=== PATIENT | male | born 1965 | race Caucasian/White ===

== ENCOUNTER 2016-08-18 00:03 | Inpatient (IN) | payer OTHER ==
[2016-08-18] MEDS ORDERED: LORazepam 2 MG/ML INJ ONE (00:22)
[2016-08-18] MEDS ORDERED: LORazepam 2 MG/ML INJ IVP ONE ×3 (00:29→02:53)
[2016-08-18] MEDS ORDERED: NS 1,000 ML IV ONE (01:06)
--- NOTE | 2016-08-18 01:09 | EDPHY ---
H & P Stated Complaint: seizure likely d/t EtOH withdrawal Time Seen by Provider: 08/18/16 00:59 HPI/ROS: HPI The patient presents brought in from shelter after 2 seizures which occurred at 9: 30 p.m. and then 11:00 p.m. lasting for several minutes and resolving spontaneously. The patient is a heavy drinker, drinking about a half gal of hard alcohol daily recently. His last drink was at 2:00 p.m. yesterday. He has a prior history of alcohol withdrawal seizures years ago. Currently, he says he feels anxious, nauseated, jittery. He received a dose of Ativan prior to my assessment with feels that this did not help him much.. REVIEW OF SYSTEMS Constitutional: No fever, no chills. Eyes: No discharge. ENT: No sore throat. Cardiovascular: No chest pain, no palpitations. Respiratory: No cough, no shortness of breath. Gastrointestinal: No abdominal pain, no vomiting. Genitourinary: No hematuria. Musculoskeletal: No back pain. Skin: No rashes. Neurological: No headache. PMHx: History of alcohol withdrawal with seizures Soc Hx: Currently incarcerated PHYSICAL General Appearance: Anxious appearing in no acute distress Eyes: Pupils equal and round no pallor or injection ENT, Mouth: Mucous membranes moist Respiratory: There are no retractions, lungs are clear to auscultation Cardiovascular: Regular rate and rhythm Gastrointestinal: Abdomen is soft and non-tender, no masses, bowel sounds normal Neurological: A&O, moves all extremities Skin: Warm and dry, no rashes Musculoskeletal: Neck is supple non tender Extremities: symmetrical, full range of motion Psychiatric: Patient is oriented X 3, there is no agitation Source: Patient, Police - Personal History Current Tetanus/Diphtheria Vaccine: No - Medical/Surgical History Hx Asthma: No Hx Chronic Respiratory Disease: No Hx Diabetes: No Hx Cardiac Disease: No Hx Renal Disease: No Hx Cirrhosis: No Hx Alcoholism: Yes Hx HIV/AIDS: No Hx Splenectomy or Spleen Trauma: No Other PMH: PSHx: appy. PMHx: possible Hep C; alcoholism, heroin abuse - Social History Smoking Status: Current every day smoker Constitutional: Initial Vital Signs Temperature (C) 36.5 C 08/18/16 00:08 Heart Rate 91 08/18/16 00:08 Respiratory Rate 16 08/18/16 00:08 Blood Pressure 155/117 H 08/18/16 00:08 O2 Sat (%) 96 08/18/16 00:08 O2 Delivery Mode Nasal Cannula O2 (L/minute) 2 Allergies/Adverse Reactions: No Known Allergies Allergy (Unverified 08/18/16 00:06) Home Medications: Medication Instructions Recorded Atenolol 08/18/16 FOLIC ACID 08/18/16 Pepto-Bismol oral liquid (*) 08/18/16 Thiamine HCl 08/18/16 Tylenol 08/18/16 chlordiazePOXIDE [Librium 25 mg 08/18/16 (*)] clonIDINE [Catapres (*)] 08/18/16 Medical Decision Making ED Course/Re-evaluation: The patient was monitored in the emergency room and received a total of 3 mg of Ativan with small amount of improvement in his symptoms. Was very sleepy, however when he roused she became very tachycardic and tremulous. I feel he is at risk for delirium tremens. I plan to admit him to the hospitalist service. I have discussed the case with Dr. Gibbons. Differential Diagnosis: This is a 50-year-old male with history of heavy alcohol use, recently incarcerated, last drink about 12 hours ago who presents with alcohol withdrawal symptoms and 2 seizures earlier tonight. Currently, he is mildly tachycardic and hypertensive, he feels anxious and is tremulous. I will treat him with Ativan and IV fluids and check basic labs. We will monitor him closely on the monitor. - Data Points Laboratory Results: Laboratory Results 08/18/16 00:17 08/18/16 00:17 08/18/16 08/18/16 00: 00:17 WBC 10.99 10^3/uL H 10^3/uL (3.80-9.50) RBC 4.92 10^6/uL 10^6/uL (4.40-6.38) Hgb 14.8 g/dL g/dL (13.7-17.5) Hct 44.0 % % (40.0-51.0) MCV 89.4 fL fL (81.5-99.8) MCH 30.1 pg pg (27.9-34.1) MCHC 33.6 g/dL g/dL (32.4-36.7) RDW 15.0 % % (11.5-15.2) Plt Count 376 10^3/uL 10^3/uL (150-400) MPV 10.4 fL fL (8.7-11.7) Neut % (Auto) 65.2 % % (39.3-74.2) Lymph % (Auto) 24.0 % % (15.0-45.0) [place] % (Auto) 9.3 % % (4.5-13.0) Eos % (Auto) 0.7 % % (0.6-7.6) Baso % (Auto) 0.4 % % (0.3-1.7) Nucleat RBC Rel Count 0.0 % % (0.0-0.2) Absolute Neuts (auto) 7.17 10^3/uL H 10^3/uL (1.70-6.50) Absolute Lymphs (auto) 2.64 10^3/uL 10^3/uL (1.00-3.00) Absolute Monos (auto) 1.02 10^3/uL H 10^3/uL (0.30-0.80) Absolute Eos (auto) 0.08 10^3/uL 10^3/uL (0.03-0.40) Absolute Basos (auto) 0.04 10^3/uL 10^3/uL (0.02-0.10) Absolute Nucleated RBC 0.00 10^3/uL 10^3/uL (0-0.01) Immature Gran % 0.4 % % (0.0-1.1) Immature Gran # 0.04 10^3/uL 10^3/uL (0.00-0.10) Sodium 143 mEq/L mEq/L (134-144) Potassium 4.5 mEq/L mEq/L (3.5-5.2) Chloride 109 mEq/L mEq/L (97-110) Carbon Dioxide 19 mEq/l L mEq/l (22-31) Anion Gap 15 mEq/L mEq/L (8-16) BUN 15 mg/dL mg/dL (7-23) Creatinine 0.9 mg/dL mg/dL (0.7-1.3) Estimated GFR > 60 Glucose 94 mg/dL mg/dL (70-100) Calcium 9.4 mg/dL mg/dL (8.5-10.4) Total Bilirubin 0.8 mg/dL mg/dL (0.1-1.4) AST 31 IU/L IU/L (17-59) ALT 31 IU/L IU/L (21-72) Alkaline Phosphatase 58 IU/L IU/L (38-126) Total Protein 7.5 g/dL g/dL (6.3-8.2) Albumin 4.3 g/dL g/dL (3.5-5.0) Medications Given: Discontinued Medications Sodium Chloride (Ns) 1,000 mls @ 0 mls/hr IV ONCE ONE PRN Reason: Wide Open Stop: 08/18/16 01:07 Last Admin: 08/18/16 01:18 Dose: 1,000 mls Thiamine HCl 500 mg/ Sodium (Chloride) 105 mls @ 210 mls/hr IM ONCE ONE Stop: 08/18/16 05:07 Last Admin: 08/18/16 05:26 Dose: 105 mls Lorazepam (Ativan Injection) 1 mg IVP EDNOW ONE Stop: 08/18/16 00:30 Last Admin: 08/18/16 00:30 Dose: 1 mg Lorazepam (Ativan Injection) 1 mg IVP EDNOW ONE Stop: 08/18/16 01:07 Last Admin: 08/18/16 01:17 Dose: 1 mg Lorazepam (Ativan Injection) 1 mg IVP EDNOW ONE Stop: 08/18/16 02:54 Last Admin: 08/18/16 03:06 Dose: 1 mg Departure - Departure Disposition: [facility] Acute Clinical Impression: Alcohol withdrawal Qualifiers: Complication of substance-induced condition: with delirium Qualified Code(s): F10.231 - Alcohol dependence with withdrawal delirium Seizure due to alcohol withdrawal Qualifiers: Complication of substance-induced condition: with delirium Qualified Code(s): F10.231 - Alcohol dependence with withdrawal delirium Condition: Fair
[2016-08-18 01:16] LABS: % IMMATURE GRANULYOCYTES 0.4 % (0.0-1.1); ABSOLUTE IMMATURE GRANULOCYTES 0.04 10^3/uL (0.00-0.10); ADD DIFF? NO; ADD MORPH? NO; ADD SCAN? NO; ATYPICAL LYMPHOCYTE FLAG 0 (0-99); FRAGMENT RBC FLAG 0 (0-99); HEMOGLOBIN 14.8 g/dL (13.7-17.5); LEFT SHIFT FLG 0 (0-99); LIPEMIA HEMOLYSIS FLAG 80 (0-99); MEAN CELL HEMOGLOBIN 30.1 pg (27.9-34.1); MEAN CELL HEMOGLOBIN CONCENTR. 33.6 g/dL (32.4-36.7); MEAN CELL VOLUME 89.4 fL (81.5-99.8); MEAN PLATELET VOLUME 10.4 fL (8.7-11.7); PLATELET CLUMPS FLAG 20 (0-99); PLATELET COUNT 376 10^3/uL (150-400); RED BLOOD CELL COUNT 4.92 10^6/uL (4.40-6.38)
[2016-08-18 01:20] LABS: ALANINE AMINOTRANSFERASE 31 IU/L (21-72); ALBUMIN 4.3 g/dL (3.5-5.0); ALKALINE PHOSPHATASE 58 IU/L (38-126); ANION GAP 15 mEq/L (8-16); ASPARTATE AMINOTRANSFERASE 31 IU/L (17-59); BILIRUBIN,TOTAL 0.8 mg/dL (0.1-1.4); CALCIUM 9.4 mg/dL (8.5-10.4); CARBON DIOXIDE 19 mEq/l (22-31); CHLORIDE 109 mEq/L (97-110); CREATININE 0.9 mg/dL (0.7-1.3); GLOMERULAR FILTRATION RATE > 60; GLUCOSE 94 mg/dL (70-100); POTASSIUM 4.5 mEq/L (3.5-5.2); SODIUM 143 mEq/L (134-144); TOTAL PROTEIN 7.5 g/dL (6.3-8.2)
[2016-08-18] MEDS ORDERED: THIAMINE HCL 500 MG in NS 100 ML IM ONE (04:38)
[2016-08-18] MEDS ORDERED: MAG HYDROX/AL HYDROX/SIMETH 30 ML UDCUP PO PRN (04:38)
[2016-08-18] MEDS ORDERED: NS 1,000 ML IV SCH (04:45)
[2016-08-18 05:37] LABS: % IMMATURE GRANULYOCYTES 0.3 % (0.0-1.1); ABSOLUTE IMMATURE GRANULOCYTES 0.03 10^3/uL (0.00-0.10); ADD DIFF? NO; ADD MORPH? NO; ADD SCAN? NO; ATYPICAL LYMPHOCYTE FLAG 10 (0-99); FRAGMENT RBC FLAG 0 (0-99); HEMOGLOBIN 13.6 g/dL (13.7-17.5); LEFT SHIFT FLG 0 (0-99); LIPEMIA HEMOLYSIS FLAG 90 (0-99); MEAN CELL HEMOGLOBIN 30.4 pg (27.9-34.1); MEAN CELL VOLUME 89.5 fL (81.5-99.8); MEAN PLATELET VOLUME 10.2 fL (8.7-11.7); PLATELET CLUMPS FLAG 20 (0-99); PLATELET COUNT 374 10^3/uL (150-400); RED BLOOD CELL COUNT 4.47 10^6/uL (4.40-6.38); RED CELL DISTRIBUTION WIDTH 14.9 % (11.5-15.2)
[2016-08-18] MEDS ORDERED: ONDANSETRON 4 MG/2 ML VIAL IVP PRN (05:43)
[2016-08-18] MEDS ORDERED: ONDANSETRON 4 MG/2 ML VIAL ONE (05:45)
[2016-08-18] MEDS: ACETAMINOPHEN 325 MG TAB PO PRN ×2 (05:49→11:38)
[2016-08-18] MEDS: LORazepam 2 MG/ML INJ IVP PRN ×4 (05:49→14:17)
--- NOTE | 2016-08-18 05:49 | PDGENHP ---
History and Physical - Chief Complaint seizure - History of Present Illness Patient a 50-year-old male with history of heavy ETOH abuse who presents from prison with seizures. Patient states he usually drinks about a half a gallon of whiskey or vodka daily and last drink was on the morning of 08/17. At about 4: 45 p.m. patient was arrested and placed in [facility] prison. While incarcerated patient was noted to have a generalized tonic-clonic seizure at 9: 00 p.m. and then again at 11:30 p.m. with a distinct lucid period. After the second seizure, he was transported to the ED for further evaluation and was given ativan 1 mg en route. By arrival to the ED, patient was afebrile and hemodynamically stable. He was exhibiting mild-moderate symptoms of acute alcohol withdrawal. Labs including CBC and BMP were normal. He was given several rounds of ativan and then admitted to the hospitalist service for further management. On my evaluation, patient could not provide much additional medical history due to sedation/lethargy. He was complaining of headache and feeling anxious. Denied fever, chills, cough, congestion, abdominal pain, vomiting or diarrhea. History Information - Allergies/Home Medication List Allergies/Adverse Reactions: No Known Allergies Allergy (Unverified 08/18/16 00:06) Home Medications: Atenolol 08/18/16 [Last Taken Unknown] FOLIC ACID 08/18/16 [Last Taken Unknown] Pepto-Bismol oral liquid (*) 08/18/16 [Last Taken Unknown] Thiamine HCl 08/18/16 [Last Taken Unknown] Tylenol 08/18/16 [Last Taken Unknown] chlordiazePOXIDE [Librium 25 mg (*)] 08/18/16 [Last Taken Unknown] clonIDINE [Catapres (*)] 08/18/16 [Last Taken Unknown] I have personally reviewed and updated: family history, medical history, social history, surgical history - Past Medical History Additional medical history: heavy ETOH abuse, with previous history of withdrawal seizures. unknown - Surgical History Reports: appendectomy - Family History Positive for: non-pertinent - Social History Smoking Status: Current every day smoker Alcohol Use: Heavy (4 pints of liquor daily) Drug Use: Other (unknown) Additional social history: Patient is homeless, was incarcerated today. Review of Systems ROS: 10pt was reviewed & negative except for what was stated in HPI & below Physical Exam Temp Pulse Resp BP Pulse Ox 36.5 C 90 24 H 159/101 H 93 08/18/16 04:58 08/18/16 04:58 08/18/16 04:58 08/18/16 04:10 08/18/16 04:58 O2 (L/minute) 2 Constitutional: no apparent distress, obese, unkempt Eyes: PERRL, anicteric sclera, EOMI Ears, Nose, Mouth, Throat: hearing normal, ears appear normal, no oral mucosal ulcers, dry mucous membranes, other (tongue fasiculation) Cardiovascular: regular rate and rhythym, no murmur, rub, or gallop, pulses symmetric bilaterally, tachycardia, No JVD, No edema Peripheral Pulses: 2+: dorsalis-pedis (R), dorsalis-pedis (L) Respiratory: no respiratory distress, no rales or rhonchi, clear to auscultation Gastrointestinal: normoactive bowel sounds, soft, non-tender abdomen, no palpable masses, No guarding, No rebound, No distension Genitourinary: no bladder fullness, no bladder tenderness Skin: warm, normal color, no rashes or abrasions, no fluctuance, No mottled Musculoskeletal: no muscle tenderness, normal joint ROM Neurologic: AAOx3, sensation intact bilaterally, CN II-XII Intact, other ( moving all four extremities), No weakness, No numbness, No pronator drift, No facial droop Psychiatric: thought process linear, other (lethargic but responsive to verbal stimuli) Lab Data & Imaging Review 08/18/16 06:00 08/18/16 06:00 WBC 8.88 10^3/uL (3.80-9.50) 08/18/16 06:00 RBC 4.47 10^6/uL (4.40-6.38) 08/18/16 06:00 Hgb 13.6 g/dL (13.7-17.5) L 08/18/16 06:00 Hct 40.0 % (40.0-51.0) 08/18/16 06:00 MCV 89.5 fL (81.5-99.8) 08/18/16 06:00 MCH 30.4 pg (27.9-34.1) 08/18/16 06:00 MCHC 34.0 g/dL (32.4-36.7) 08/18/16 06:00 RDW 14.9 % (11.5-15.2) 08/18/16 06:00 Plt Count 374 10^3/uL (150-400) 08/18/16 06:00 MPV 10.2 fL (8.7-11.7) 08/18/16 06:00 Neut % (Auto) 51.1 % (39.3-74.2) 08/18/16 06:00 Lymph % (Auto) 36.0 % (15.0-45.0) 08/18/16 06:00 [place] % (Auto) 10.4 % (4.5-13.0) 08/18/16 06:00 Eos % (Auto) 1.7 % (0.6-7.6) 08/18/16 06:00 Baso % (Auto) 0.5 % (0.3-1.7) 08/18/16 06:00 Nucleat RBC Rel Count 0.0 % (0.0-0.2) 08/18/16 06:00 Absolute Neuts (auto) 4.54 10^3/uL (1.70-6.50) 08/18/16 06:00 Absolute Lymphs (auto) 3.20 10^3/uL (1.00-3.00) H 08/18/16 06:00 Absolute Monos (auto) 0.92 10^3/uL (0.30-0.80) H 08/18/16 06:00 Absolute Eos (auto) 0.15 10^3/uL (0.03-0.40) 08/18/16 06:00 Absolute Basos (auto) 0.04 10^3/uL (0.02-0.10) 08/18/16 06:00 Absolute Nucleated RBC 0.00 10^3/uL (0-0.01) 08/18/16 06:00 Immature Gran % 0.3 % (0.0-1.1) 08/18/16 06:00 Immature Gran # 0.03 10^3/uL (0.00-0.10) 08/18/16 06:00 VBG Lactic Acid 1.6 mmol/L (0.7-2.1) 08/18/16 04:00 Sodium 143 mEq/L (134-144) 08/18/16 00:17 Potassium 4.5 mEq/L (3.5-5.2) 08/18/16 00:17 Chloride 109 mEq/L (97-110) 08/18/16 00:17 Carbon Dioxide 19 mEq/l (22-31) L 08/18/16 00:17 Anion Gap 15 mEq/L (8-16) 08/18/16 00:17 BUN 15 mg/dL (7-23) 08/18/16 00:17 Creatinine 0.9 mg/dL (0.7-1.3) 08/18/16 00:17 Estimated GFR > 60 08/18/16 00:17 Glucose 94 mg/dL (70-100) 08/18/16 00:17 Calcium 9.4 mg/dL (8.5-10.4) 08/18/16 00:17 Total Bilirubin 0.8 mg/dL (0.1-1.4) 08/18/16 00:17 AST 31 IU/L (17-59) 08/18/16 00:17 ALT 31 IU/L (21-72) 08/18/16 00:17 Alkaline Phosphatase 58 IU/L (38-126) 08/18/16 00:17 Total Protein 7.5 g/dL (6.3-8.2) 08/18/16 00:17 Albumin 4.3 g/dL (3.5-5.0) 08/18/16 00:17 Assessment & Plan Assessment: Is a 50-year-old male with a history of heavy alcohol use, with previous history of alcohol withdrawal seizure was brought to the ED from retirement after having 2 witnessed generalized tonic-clonic seizures, presumed to be due to acute alcohol withdrawal.. Plan: # seizure, acute encephalopathy Seizures presumed to be due to acute alcohol withdrawal given history of heavy ETOH use and recent incarceration preventing his access to ETOH.On my evaluation , withdrawal symptoms were minimal, but patient continued to complain of headache, so will check CT head to rule out intracranial cause of seizure. Will also check CXR, UA and drug screen to rule out secondary causes of acute encephalopathy. Will treat ETOH withdrawal and not treat with anti-epileptics at this time. # acute alcohol withdrawal Last drink was on the morning of 07/20 and patient reports history of withdrawal seizures. Will place on aggressive CIWA protocol with ativan. Will also supplement thiamine, folate, multivitamin. # history of tobacco use Will offer nicotine replacement therapy prn. # dispo: admit to inpatient service for likely > 2 [place] stay given acute alcohol withdrawal complicated by seizures # gen: NPO DVT ppx: lovenox Full code
[2016-08-18 06:16] LABS: ALANINE AMINOTRANSFERASE 28 IU/L (21-72); ALBUMIN 3.9 g/dL (3.5-5.0); ALKALINE PHOSPHATASE 51 IU/L (38-126); ANION GAP 10 mEq/L (8-16); ASPARTATE AMINOTRANSFERASE 28 IU/L (17-59); BILIRUBIN-CONJUGATED 0.5 mg/dL (0.0-0.5); BILIRUBIN-UNCONJUGATED 0.5 mg/dL (0.0-1.1); CALCIUM 8.9 mg/dL (8.5-10.4); CARBON DIOXIDE 23 mEq/l (22-31); CHLORIDE 110 mEq/L (97-110); CREATININE 0.9 mg/dL (0.7-1.3); GLOMERULAR FILTRATION RATE > 60; GLUCOSE 84 mg/dL (70-100); MAGNESIUM 1.9 mg/dL (1.6-2.3); POTASSIUM 4.1 mEq/L (3.5-5.2); SODIUM 143 mEq/L (134-144); TOTAL PROTEIN 6.8 g/dL (6.3-8.2)
--- NOTE | 2016-08-18 08:35 | CPEKG ---
Heart Rate: 90 RR Interval: 667 P-R Interval: 132 QRSD Interval: 94 QT Interval: 380 QTC Interval: 465 P [place]: 60 QRS [place]: 5 T Wave [place]: 37 EKG Severity - NORMAL ECG - EKG Impression: SINUS RHYTHM EKG Impression: Agree with above Electronically Signed By: Jay Jay Cool 18-Aug-2016 18:20:09
[2016-08-18] MEDS ORDERED: FAMOTIDINE 20 MG/NACL 50 ML IV SCH (09:00)
[2016-08-18] MEDS ORDERED: FOLIC ACID 1 MG TAB PO SCH (09:00)
[2016-08-18] MEDS ORDERED: MULTIVITAMINS 1 EACH TAB PO SCH (09:00)
[2016-08-18] MEDS ORDERED: ENOXAPARIN 40 MG/0.4 ML SYR SC SCH (09:00)
[2016-08-18] MEDS ORDERED: THIAMINE HCL 100 MG TAB PO SCH (10:55)
[2016-08-18] MEDS ORDERED: IPRATROPIUM/ALBUTEROL 3 ML DEYVIAL IH SCH (12:00)
[2016-08-18 12:09] LABS: COLOR YELLOW; LEUKOCYTE ESTERASE,URINE NEGATIVE (NEGATIVE); NITRITE,URINE NEGATIVE (NEGATIVE)
[2016-08-18 12:24] VITALS: BP 150/99; PULSE 87; RESP 24; TEMP 98.6; O2SAT 92
[2016-08-18 12:35] LABS: PHENCYCLIDINE URINE BCH < 6 ng/ml (NEGATIVE); PHENCYCLIDINE URINE BCH NEGATIVE (NEGATIVE); TETRAHYDROCANNABINOL URINE > 80 ng/mL (NEGATIVE)
[2016-08-18 12:49] LABS: TETRAHYDROCANNABINOL URINE 750 ng/mL (NEGATIVE)
--- NOTE | 2016-08-18 16:34 | GCON ---
[f rep st] CONSULTATION PULMONARY/CRITICAL CARE CONSULTATION DATE OF CONSULTATION: 08/18/2016 REFERRING PHYSICIAN: Prosper Montoya MD REASON FOR REFERRAL: Evaluation and management of headache, seizure and alcohol withdrawal. HISTORY: The patient is a 50-year-old gentleman with a history of heavy alcohol abuse. His last dr ink was yesterday morning. The patient was arrested at 4:45 and placed in the [facility] halfway. He had a witnessed generalized tonic-clonic seizure at 9 p.m. and then again at 11:30 p.m. He was transported to the [facility] Emergency Department where he was evaluated and admitt ed. Since admission, he has had intermittent symptoms of alcohol withdrawal including headache and anxiety. These have responded to IV Ativan. He currently reports a headache that is quite diffuse and made worse by brighter light. PAST MEDICAL HISTORY: Alcohol abuse with a history of withdrawal seizures. MEDICATIONS: As an outpatient include thiamine, Librium, clonidine, folic acid and atenolol, althou gh it is not clear that the patient has been taking these medications. FAMILY HISTORY: Unremarkable. SOCIAL HISTORY: The patient drinks several pints of hard liquor daily and smokes daily. He is home less, and is currently incarcerated. REVIEW OF SYSTEMS: A 10-point review of systems is reviewed and is negative. PHYSICAL EXAMINATION: GENERAL: The patient is lethargic but arousable. VITAL SIGNS: His blood pr essure is 150/99 with a heart rate of 87. He is afebrile. Oxygen saturations are 92% on 2 L. HEEN T: Normocephalic and atraumatic. No icterus. NECK: No JVD. Trachea is midline. CHEST: Clear t o auscultation. CARDIAC: Regular rate and rhythm without murmur. ABDOMEN: Soft, nontender. Moy l sounds are present. EXTREMITIES: No clubbing, cyanosis or edema. NEURO: The patient is sleepin g but arousable and oriented x1. He is able to move all extremities. LABORATORY: The chemistry group is normal. CBC shows a hemoglobin of 13.6. A urine tox screen is positive for marijuana and benzodiazepines. A chest x-ray shows some mild atelectasis in the right base. Images reviewed. A CT scan of the head shows no acute findings. ASSESSMENT: 1. Seizures. These are likely related to alcohol withdrawal. He has had no seizures since admissi on and being placed on Ativan. 2. Acute alcohol withdrawal. The patient's symptoms are currently fairly well controlled with Ativ an on a p.r.n. basis, which he has been receiving regularly. 3. History of tobacco abuse. PLAN: 1. Continue Ativan. I will schedule Ativan 1 mg every 4 hours in addition to the p.r.n. dosing. 2. Continue thiamine replacement. 3. Continue the CIWA protocol. Alcohol will not be used as it is anticipated the patient will be g oing back to halfway after his hospitalization, so will need either scheduled benzodiazepine or no medi cations at the time of discharge. /[id number]/MODL
[2016-08-18] MEDS ORDERED: LORazepam 2 MG/ML INJ IVP SCH (18:00)
[2016-08-21] MEDS ORDERED: THIAMINE HCL 100 MG TAB PO SCH (09:00)
== END 2016-08-18 17:02 | disposition left against medical advice (07) | DRG 101 ==
LOC: F2N 04:36 → OBSVTOIN 04:37
PROVIDERS: ADMIT Internal Medicine; ATTEND Internal Medicine
DX: R56.9 Unspecified convulsions (principal); F10.239 Alcohol dependence with withdrawal, unspecified; R51 Headache; Z59.0 Homelessness
CPT/HCPCS: 80307; 96374; G0480; J1650; J2060; J2405; J3411

== ENCOUNTER 2017-08-08 23:46 | Observation (INO) | payer OTHER ==
[2017-08-08] MEDS ORDERED: NS 1,000 ML IV ONE (23:51)
--- NOTE | 2017-08-08 23:53 | EDPHY ---
H & P Time Seen by Provider: 08/08/17 23:55 HPI/ROS: HPI CHIEF COMPLAINT: Seizure from skilled nursing HISTORY OF PRESENT ILLNESS: Patient is a 51-year-old male, he is currently incarcerated. He was resting 5 days ago. He drinks alcohol daily and has up to half a gal of whiskey per day. He stopped drinking 5 days ago as he was arrested. Additionally he also does IV heroin and stop this 5 days ago prior to being arrested. He presents emergency room by EMS with a normal glucose of 83 and mentating appropriately but had a witnessed seizure in skilled nursing lasting 20 min. There was a much of a postictal state reported however patient presents to the emergency room alert or x4, GCS 15, no trauma on exam. Does state that he has a global headache. Vital signs are stable. He received 2 mg IV Valium prior to arrival. Past Medical History: Alcohol draw seizures, alcoholism, heroin abuse Past Surgical History: No recent surgery Social History: Currently incarcerated, history polysubstance abuse, IV heroin , alcoholism. Daily alcohol use. Family History: Noncontributory ROS REVIEW OF SYSTEMS: A comprehensive 10 point review of systems is otherwise negative aside from elements mentioned in the history of present illness. Exam Constitutional appears well nontoxic triage nursing summary reviewed, vital signs reviewed, awake/alert. Eyes normal conjunctivae and sclera, EOMI, PERRLA. HENT oropharynx no biting of the tongue, normal inspection, atraumatic, moist mucus membranes, no epistaxis, neck supple/ no meningismus, no raccoon eyes. Respiratory clear to auscultation bilaterally, normal breath sounds, no respiratory distress, no wheezing. Cardiovascular rate normal, regular rhythm, no murmur, no edema, distal pulses normal. Gastrointestinal soft, non-tender, no rebound, no guarding, normal bowel sounds, no distension, no pulsatile mass. Genitourinary no CVA tenderness. Musculoskeletal no midline vertebral tenderness, full range of motion, no calf swelling, no tenderness of extremities, no meningismus, good pulses, neurovascularly intact. Skin pink, warm, & dry, no rash, skin atraumatic. Neurologic awake, alert and oriented x 3, AAOx3, moves all 4 extremities equally, motor intact, sensory intact, CN II-XII intact, normal cerebellar, normal vision, normal speech. Psychiatric normal mood/affect. Heme/Lymph/Immune no lymphadenopathy. Differential Diagnosis: Includes but is not limited to in a particular order alcohol withdrawal seizure, electrolyte abnormality, acidosis, pseudo seizure, heroin withdrawal, Medical Decision Making: Plan for this patient IV establishment full ekg monitor tech obtain EKG, electrolytes, CT head without contrast, IV fluids, check bicarb level, check lactic acid. Re-evaluate. Monitor for seizure. Re-evaluation: EKG interpretation by me on record in [employer] system. Impression time of EKG 2055, sinus rhythm rate of 65 no signs of cardiac arrhythmia no signs of ST elevation or ST depression. No significant T-wave abnormalities. 1249: CT head without contrast negative for acute bleed or traumatic injury. 1251: Patient's blood work reviewed. I have ordered him 1 g of Keppra. This bicarb is noted to be normal. Lactic acid noted be normal view vitals are stable. He has not any seizure activity here. Will admit him overnight for observation given the description of 20 min of seizure activity in skilled nursing. He did receive 2 mg IV Valium prior to arrival. IV fluids. Now 1 g of Keppra. 1258AM: Patient resting comfortably. Spoke with the hospitalist service Dr. Saeed who agrees to admit. Source: Patient, EMS - Medical/Surgical History Hx Asthma: No Hx Chronic Respiratory Disease: No Hx Diabetes: No Hx Cardiac Disease: No Hx Renal Disease: No Hx Cirrhosis: No Hx Alcoholism: Yes Hx HIV/AIDS: No Hx Splenectomy or Spleen Trauma: No Other PMH: PSHx: appy. PMHx: possible Hep C; alcoholism, heroin abuse - Social History Smoking Status: Current every day smoker Constitutional: Initial Vital Signs Temperature (C) 36.5 C 08/08/17 23:55 Heart Rate 62 08/08/17 23:55 Respiratory Rate 20 08/08/17 23:55 Blood Pressure 136/92 H 08/08/17 23:55 O2 Sat (%) 98 08/08/17 23:55 O2 Delivery Mode Room Air Allergies/Adverse Reactions: No Known Allergies Allergy (Unverified 08/08/17 23:55) Home Medications: Medication Instructions Recorded chlordiazePOXIDE [Librium 25 mg 25 mg PO TID #13 cap 08/18/16 (*)] clonIDINE [Catapres (*)] 0.1 mg PO Q8 PRN 08/18/16 Medical Decision Making - Data Points Laboratory Results: Laboratory Results 08/08/17 23:45 08/08/17 23:45 08/09/17 08/08/17 08/08/17 00:11 23:45 23:45 WBC RBC Hgb Hct MCV MCH MCHC RDW Plt Count MPV Neut % (Auto) Lymph % (Auto) [place] % (Auto) Eos % (Auto) Baso % (Auto) Nucleat RBC Rel Count Absolute Neuts (auto) Absolute Lymphs (auto) Absolute Monos (auto) Absolute Eos (auto) Absolute Basos (auto) Absolute Nucleated RBC Immature Gran % Immature Gran # PT 13.1 SEC SEC (12.0-15.0) INR 0.97 (0.83-1.16) APTT 28.0 SEC SEC (23.0-38.0) VBG Lactic Acid 0.9 mmol/L mmol/L (0.7-2.1) Sodium 143 mEq/L mEq/L (135-145) Potassium 4.4 mEq/L mEq/L (3.5-5.2) Chloride 104 mEq/L mEq/L (97-110) Carbon Dioxide 28 mEq/l mEq/l (22-31) Anion Gap 11 mEq/L mEq/L (8-16) BUN 18 mg/dL mg/dL (7-23) Creatinine 0.8 mg/dL mg/dL (0.7-1.3) Estimated GFR > 60 Glucose 70 mg/dL mg/dL (70-100) Calcium 9.6 mg/dL mg/dL (8.5-10.4) Total Bilirubin 0.5 mg/dL mg/dL (0.1-1.4) Conjugated Bilirubin 0.3 mg/dL mg/dL (0.0-0.5) Unconjugated Bilirubin 0.2 mg/dL mg/dL (0.0-1.1) AST 71 IU/L H IU/L (17-59) ALT 133 IU/L H IU/L (21-72) Alkaline Phosphatase 46 IU/L IU/L (38-126) Total Protein 7.2 g/dL g/dL (6.3-8.2) Albumin 3.6 g/dL g/dL (3.5-5.0) Lipase 130 IU/L IU/L (23-300) Ethyl Alcohol < 10 mg/dL mg/dL (0-10) 08/08/17 23:45 WBC 7.72 10^3/uL 10^3/uL (3.80-9.50) RBC 4.71 10^6/uL 10^6/uL (4.40-6.38) Hgb 13.6 g/dL L g/dL (13.7-17.5) Hct 40.7 % % (40.0-51.0) MCV 86.4 fL fL (81.5-99.8) MCH 28.9 pg pg (27.9-34.1) MCHC 33.4 g/dL g/dL (32.4-36.7) RDW 14.8 % % (11.5-15.2) Plt Count 348 10^3/uL 10^3/uL (150-400) MPV 9.8 fL fL (8.7-11.7) Neut % (Auto) 42.6 % % (39.3-74.2) Lymph % (Auto) 38.1 % % (15.0-45.0) [place] % (Auto) 12.8 % % (4.5-13.0) Eos % (Auto) 5.4 % % (0.6-7.6) Baso % (Auto) 0.8 % % (0.3-1.7) Nucleat RBC Rel Count 0.0 % % (0.0-0.2) Absolute Neuts (auto) 3.29 10^3/uL 10^3/uL (1.70-6.50) Absolute Lymphs (auto) 2.94 10^3/uL 10^3/uL (1.00-3.00) Absolute Monos (auto) 0.99 10^3/uL H 10^3/uL (0.30-0.80) Absolute Eos (auto) 0.42 10^3/uL H 10^3/uL (0.03-0.40) Absolute Basos (auto) 0.06 10^3/uL 10^3/uL (0.02-0.10) Absolute Nucleated RBC 0.00 10^3/uL 10^3/uL (0-0.01) Immature Gran % 0.3 % % (0.0-1.1) Immature Gran # 0.02 10^3/uL 10^3/uL (0.00-0.10) PT INR APTT VBG Lactic Acid Sodium Potassium Chloride Carbon Dioxide Anion Gap BUN Creatinine Estimated GFR Glucose Calcium Total Bilirubin Conjugated Bilirubin Unconjugated Bilirubin AST ALT Alkaline Phosphatase Total Protein Albumin Lipase Ethyl Alcohol Medications Given: Discontinued Medications Sodium Chloride (Ns) 1,000 mls @ 0 mls/hr IV EDNOW ONE; Wide Open PRN Reason: Protocol Stop: 08/08/17 23:52 Last Admin: 08/09/17 00:00 Dose: 1,000 mls Levetiracetam (Keppra (Premix)) 100 mls @ 400 mls/hr IV EDNOW ONE Stop: 08/09/17 00:33 Last Admin: 08/09/17 00:53 Dose: 100 mls Departure - Departure Disposition: [facility] Inpatient Acute Clinical Impression: Seizure Condition: Fair Referrals: NONE *PRIMARY CARE P,. [Primary Care Provider] - As per Instructions
[2017-08-08 23:56] LABS: PLATELET COUNT 348 10^3/uL (150-400)
--- NOTE | 2017-08-08 23:57 | CPEKG ---
Heart Rate: 65 RR Interval: 923 P-R Interval: 137 QRSD Interval: 92 QT Interval: 428 QTC Interval: 445 P Callaway: 62 QRS Callaway: 33 T Wave Callaway: 22 EKG Severity - NORMAL ECG - EKG Impression: SINUS RHYTHM Electronically Signed By: Brian Mendoza 09-Aug-2017 07:22:14
[2017-08-09] MEDS ORDERED: levETIRAcetam 1000MG/NACL 100 ML IV ONE (00:19)
[2017-08-09 00:20] LABS: INR 0.97 (0.83-1.16); PROTIME(PATIENT) 13.1 SEC (12.0-15.0)
[2017-08-09] MEDS ORDERED: ONDANSETRON DISINTEGRATING 4 MG TAB PO PRN (00:57)
[2017-08-09] MEDS ORDERED: ONDANSETRON 4 MG/2 ML VIAL IVP PRN (00:57)
[2017-08-09] MEDS ORDERED: ACETAMINOPHEN 325 MG TAB PO PRN (00:57)
--- NOTE | 2017-08-09 02:03 | PDGENHP ---
History and Physical - Chief Complaint Seizure - History of Present Illness 51 yo M w/ hx of ETOH and IV heroin abuse presents after a seizure. EMS reports that patient had a 20 minute, witnessed, GTC seizure in group home today. He was brought to the ED by EMS. The patient has no memory of this, he only remembers going to bed and then waking up with EMS around him. He drinks >1 pint whiskey daily and his last drink was 5 days ago. He thinks he is over the worst of his withdrawal now with only minimal symptoms. His last heroin use was also 5 days ago. He is currently asymptomatic and fully oriented with no signs of post- ictal state. History Information - Allergies/Home Medication List Allergies/Adverse Reactions: No Known Allergies Allergy (Unverified 08/08/17 23:55) Home Medications: clonIDINE [Catapres (*)] 0.1 mg PO Q8 PRN 08/18/16 [Last Taken 08/17/16 19:30] I have personally reviewed and updated: family history, medical history - Past Medical History Additional medical history: heavy ETOH abuse, with previous history of withdrawal seizures. unknown - Surgical History Reports: appendectomy - Family History Positive for: CAD Additional family history: Estranged from his family for >20 years so knows little history - Social History Smoking Status: Current every day smoker Additional social history: Patient is homeless, was incarcerated today. Review of Systems Review of Systems: ROS: 10pt was reviewed & negative except for what was stated in HPI & below Physical Exam Physical Exam: Temp Pulse Resp BP Pulse Ox 36.9 C 70 16 140/92 H 94 08/09/17 00:52 08/09/17 00:52 08/09/17 00:52 08/09/17 00:52 08/09/17 00:52 Constitutional: no apparent distress, not in pain Eyes: PERRL, EOMI Ears, Nose, Mouth, Throat: moist mucous membranes, no oral mucosal ulcers Cardiovascular: regular rate and rhythym, no murmur, rub, or gallop Respiratory: no respiratory distress, clear to auscultation Gastrointestinal: normoactive bowel sounds, soft, non-tender abdomen Skin: warm, normal color Neurologic: AAOx3, CN II-XII Intact Psychiatric: interacting appropriately, not anxious Lab Data & Imaging Review 08/08/17 23:45 08/08/17 23:45 WBC 7.72 10^3/uL (3.80-9.50) 08/08/17 23:45 RBC 4.71 10^6/uL (4.40-6.38) 08/08/17 23:45 Hgb 13.6 g/dL (13.7-17.5) L 08/08/17 23:45 Hct 40.7 % (40.0-51.0) 08/08/17 23:45 MCV 86.4 fL (81.5-99.8) 08/08/17 23:45 MCH 28.9 pg (27.9-34.1) 08/08/17 23:45 MCHC 33.4 g/dL (32.4-36.7) 08/08/17 23:45 RDW 14.8 % (11.5-15.2) 08/08/17 23:45 Plt Count 348 10^3/uL (150-400) 08/08/17 23:45 MPV 9.8 fL (8.7-11.7) 08/08/17 23:45 Neut % (Auto) 42.6 % (39.3-74.2) 08/08/17 23:45 Lymph % (Auto) 38.1 % (15.0-45.0) 08/08/17 23:45 [place] % (Auto) 12.8 % (4.5-13.0) 08/08/17 23:45 Eos % (Auto) 5.4 % (0.6-7.6) 08/08/17 23:45 Baso % (Auto) 0.8 % (0.3-1.7) 08/08/17 23:45 Nucleat RBC Rel Count 0.0 % (0.0-0.2) 08/08/17 23:45 Absolute Neuts (auto) 3.29 10^3/uL (1.70-6.50) 08/08/17 23:45 Absolute Lymphs (auto) 2.94 10^3/uL (1.00-3.00) 08/08/17 23:45 Absolute Monos (auto) 0.99 10^3/uL (0.30-0.80) H 08/08/17 23:45 Absolute Eos (auto) 0.42 10^3/uL (0.03-0.40) H 08/08/17 23:45 Absolute Basos (auto) 0.06 10^3/uL (0.02-0.10) 08/08/17 23:45 Absolute Nucleated RBC 0.00 10^3/uL (0-0.01) 08/08/17 23:45 Immature Gran % 0.3 % (0.0-1.1) 08/08/17 23:45 Immature Gran # 0.02 10^3/uL (0.00-0.10) 08/08/17 23:45 PT 13.1 SEC (12.0-15.0) 08/08/17 23:45 INR 0.97 (0.83-1.16) 08/08/17 23:45 APTT 28.0 SEC (23.0-38.0) 08/08/17 23:45 VBG Lactic Acid 0.9 mmol/L (0.7-2.1) 08/09/17 00:11 Sodium 143 mEq/L (135-145) 08/08/17 23:45 Potassium 4.4 mEq/L (3.5-5.2) 08/08/17 23:45 Chloride 104 mEq/L (97-110) 08/08/17 23:45 Carbon Dioxide 28 mEq/l (22-31) 08/08/17 23:45 Anion Gap 11 mEq/L (8-16) 08/08/17 23:45 BUN 18 mg/dL (7-23) 08/08/17 23:45 Creatinine 0.8 mg/dL (0.7-1.3) 08/08/17 23:45 Estimated GFR > 60 08/08/17 23:45 Glucose 70 mg/dL (70-100) 08/08/17 23:45 Calcium 9.6 mg/dL (8.5-10.4) 08/08/17 23:45 Total Bilirubin 0.5 mg/dL (0.1-1.4) 08/08/17 23:45 Conjugated Bilirubin 0.3 mg/dL (0.0-0.5) 08/08/17 23:45 Unconjugated Bilirubin 0.2 mg/dL (0.0-1.1) 08/08/17 23:45 AST 71 IU/L (17-59) H 08/08/17 23:45 ALT 133 IU/L (21-72) H 08/08/17 23:45 Alkaline Phosphatase 46 IU/L (38-126) 08/08/17 23:45 Total Protein 7.2 g/dL (6.3-8.2) 08/08/17 23:45 Albumin 3.6 g/dL (3.5-5.0) 08/08/17 23:45 Lipase 130 IU/L (23-300) 08/08/17 23:45 Ethyl Alcohol < 10 mg/dL (0-10) 08/08/17 23:45 Imaging Review: CT Prelim: No bleed or mass\Nothing acute Called to ER @ 1250 Visualized and Interpreted EKG results: Yes EKG Interpretation: Positive for: normal sinsus rhythm Assessment & Plan Assessment: 51 yo M w/ hx of ETOH and IV heroin abuse presents after a seizure. Plan: 1. Seizure - Per EMS, 20 minute witness GTC while in group home. Patient has no memory of the event and is now symptomatic and fully oriented without signs of post-ictal state. He states he has had prior seizures in setting of ETOH w/d but is not on any anti-epileptics. Interestingly, he appears to have only mild withdrawal symptoms at this point, if any at all. - S/p Keppra 1g IV in ED - Admit for observation - Seizure precautions - Lorazepam 2 mg IV PRN for seizure - Neurology consult placed 2. ETOH abuse - Drinks >1 pint whiskey daily. His last drink was >5 days ago. He appears to have minimal withdrawal symptoms currently. He feels like he is done withdrawing. - Will observe for now without CIWA, low threshold to start - Monitor electrolytes including Mg, Ph 3. Heroin abuse - Uses IV heroin, last use 5 days ago. Will check HIV and Hep C as I do not see those in our system. Diet - Regular Code - Full Ppx- LMWH Dispo - Admit under observation status
[2017-08-09] MEDS ORDERED: LORazepam 2 MG/ML INJ IVP PRN (02:08)
[2017-08-09 04:16] VITALS: O2SAT 96
[2017-08-09 04:36] LABS: HEPATITIS C ANTIBODY TOTAL REACTIVE (NEGATIVE); HIV TYPE 1 AND 2 NEGATIVE (NEGATIVE)
[2017-08-09 06:35] LABS: PLATELET COUNT 318 10^3/uL (150-400)
[2017-08-09] MEDS ORDERED: ENOXAPARIN 40 MG/0.4 ML SYR SC SCH (09:00)
[2017-08-09 09:13] VITALS: BP 154/98; PULSE 82; RESP 16; TEMP 97.6
--- NOTE | 2017-08-09 09:38 | ASDISCHSUM ---
Discharge Information Plan Status: Medically Cleared to Leave: Discharge Date:08/09/2017 09:25 AM CM D/C Disposition:Law Enforcement/Court/Correction ADT D/C Disposition:Against Medical Advice Projected Discharge Date:08/09/2017 09:25 AM Transportation at D/C: Discharge Delay Reason: Follow-Up Date:08/09/2017 09:25 AM Discharge Slot: Final Diagnosis: Placement Information Patient Contact Information Contact Name:SARITHA Relationship:Life Partner Address:[address] Work Phone: [facility]:[place] Alternate Phone: [facility]/Zip Code:[place] [address] Email: Financial Information Financial Class:Commercial Primary Plan Desc:[facility] Primary Plan Number:[id number] Secondary Plan Desc: Secondary Plan Number: Assessment Information Case Management Discharge Plan Note Case Management Discharge Discharge Order Complete? Answers: No Discharge Comments Notes: 08/09/2017 Discharge Note Pt left AMA. Case Management contacted the [facility] Department ot notify of pt decision. Date Signed: 08/09/2017 09:37 AM Electronically Signed By:Kim Simms RN Intervention Information
--- NOTE | 2017-08-09 09:42 | NEUROPROG ---
Assessment: CONSULTATION CANCELED NOTE: I WENT TO SEE PATIENT THIS MORNING AND WAS TOLD HE LEFT AGAINST MEDICAL ADVICE ( AMA). HE HAD ALREADY LEFT THE HOSPITAL. Objective: Vital Signs Temp Pulse Resp BP Pulse Ox 36.4 C 82 16 154/98 H 96 08/09/17 09:11 08/09/17 09:11 08/09/17 09:11 08/09/17 09:11 08/09/17 09:11 Laboratory Results 08/09/17 05:54 08/09/17 05:54 08/08/17 08/09/17 08/10/17 05:59 05:59 05:59 Intake Total 1100 Output Total 700 Balance 400 PT 13.1 SEC (12.0-15.0) 08/08/17 23:45 INR 0.97 (0.83-1.16) 08/08/17 23:45 Allergies/Adverse Reactions: No Known Allergies Allergy (Unverified 08/08/17 23:55)
--- NOTE | 2017-08-09 13:16 | GDS ---
[f rep st] DISCHARGE SUMMARY DISCHARGE DIAGNOSES: Alcohol withdrawal seizure. HOSPITAL COURSE: The patient presented with seizures, was admitted. He left against medical advice without being seen by a physician. /[id number]/MODL
== END 2017-08-09 09:25 | disposition left against medical advice (07) ==
LOC: EDUNIT# → F2W 08-09 03:51
PROVIDERS: ADMIT Student in an Organized Health Care Education/Training Program; ATTEND Internal Medicine
DX: R56.9 Unspecified convulsions (principal); F10.239 Alcohol dependence with withdrawal, unspecified; E86.9 Volume depletion, unspecified; F19.10 Other psychoactive substance abuse, uncomplicated; F17.210 Nicotine dependence, cigarettes, uncomplicated; Z82.49 Family history of ischemic heart disease and other diseases of the circulatory system; Z59.0 Homelessness
CPT/HCPCS: 70450; 93005; G0378; 80305; 96374; G0472; G0480; J1650; J1953